=== PATIENT | female | born 1960 | race Caucasian/White ===

== ENCOUNTER → 2018-03-22 09:38 | Outpatient (CLI) | payer SELFPAY ==
--- NOTE | 2018-03-22 13:12 | NEURO ---
NCS and/or EMG Patient Report Ordering Doctor: Cuauhtemoc Ahmadi DATE OF SERVICE: 03/22/18 Ximena Bowman is a 57-year-old female presents for electrodiagnostic testing of the upper limbs. She has chief complaint of numbness and tingling in both hands for several years, but reports it is substantially worsened within the last 6 months. Electrodiagnostic findings: Left median motor nerve demonstrates prolonged distal latency with normal amplitude and reduced conduction velocity. The right median motor nerve demonstrates prolonged distal latency with normal amplitude. Proximal response could not be obtained. Ulnar motor responses normal bilaterally, including conduction across the elbow. Prolonged left median sensory distal latency at the wrist. Absent right median sensory response. Normal ulnar and radial sensory responses bilaterally. Prolonged left median F wave. On needle EMG, 1+ fibrillations noted in left first dorsal interosseous. Electrodiagnostic impression: This is an abnormal study in the upper limbs. 1. Electrodiagnostic findings demonstrate bilateral median mononeuropathy. This is consistent with an advanced bilateral carpal tunnel syndrome. If there are any further questions, please do not hesitate to contact me
== END ==
PROVIDERS: Family Provider Nurse Practitioner Family; PCP Nurse Practitioner Family; Visit Provider Orthopaedic Surgery Hand Surgery
DX: R20.2 Paresthesia of skin (principal)
CPT/HCPCS: 95886; 95912